=== PATIENT | female | born 1965 | race Caucasian/White ===

== ENCOUNTER 2016-07-08 14:52 | Inpatient (IN) | payer MEDICAID ==
[~2016-07-08] VITALS: Ht 157.5 cm; Wt 65.0 kg
--- NOTE | 2016-07-08 16:15 | NUR ---
Nurses Admission Note 50 year old voluntary female admitted from [facility] with increasing depression,anxiety and suicidal ideations with plans to drown herself or OD on pills.Patient has had a loss of a son 2 years ago and never grieved his because "I had to be strong for my family." Patient reported being depressed for over 20 years,has been getting increasingly worse with anxiety resulting in fear to leave the house,drive or function at home. She has had trials of SSRI antidepressants in the past stating they have not been effective. Patient has never been hospitalized for mental/emotional problems. She has a UTI and Macrobid was ordered from the ER at [facility]. Patient stated she has not been sleeping well with frequent wakefulness. She hesitated but contracted for safety. Patient was oriented to the unit,staff and procedures,will be monitored q 15min. checks for safety and support.
[2016-07-08] MEDS ORDERED: Benzocaine-Menthol Lozenge 2/Pkg PO PRN (18:20)
[2016-07-08] MEDS ORDERED: Alum-Mag Hydrox-Simeth 30 mL Suspension PO PRN (18:20)
[2016-07-08] MEDS ORDERED: Magnesium Hydroxide 10 mL Oral Concentration PO PRN (18:20)
[2016-07-08] MEDS: LORazepam 1 mg Tablet PO PRN ×2 (18:27→22:16)
--- NOTE | 2016-07-08 19:22 | NUR ---
Obs Dayshift Pt was admitted to the unit, co-operative, polite, quiet, reserved, sad. Head down, little eye contact, tearful. Pt is polite, scared. Pt has appropriate questions, concerns. Spent most of the evening in her room, in bed reading. Good ADL's, Ok meals
[2016-07-08] MEDS: Nitrofurantoin Monohyd-Macrocryst 100 mg Capsule PO SCH (20:37)
--- NOTE | 2016-07-08 22:38 | NUR ---
Nurses PRN Patient requested and received Ativan 2mg at 2215 for anxiety,night assistant to assess response. Patient earlier received Ambien 5mg and Vistaril 50mg at 2036 for sleep and anxiety without effect. Will maintain q 15min. checks for safety and support.
--- NOTE | 2016-07-09 06:32 | NUR ---
Sleep Adequate sleep through the night with no noted distress or awakening per protocol checks. Total sleep over 7 hours.
[2016-07-09] MEDS: Nitrofurantoin Monohyd-Macrocryst 100 mg Capsule PO SCH ×2 (09:29→20:28)
[2016-07-09] MEDS: LORazepam 1 mg Tablet PO PRN ×2 (09:59→19:40)
[2016-07-09] MEDS: buPROPion XL 150 mg ER24 Tablet PO SCH (15:51)
--- NOTE | 2016-07-09 17:23 | NUR ---
Day Shift 7a-7p Pt isolating in room the whole shift, frequent tearfulness with reports of feeling worthless, a burden to her family and feeling as though she would be better off . Pt endorses SI with no plan or intent at this time. Pt reports moderate anxiety " I feel electricity going through my body like I am going to jump out of my skin". Pt given Ativan prn and hydroxyzine x2 with good relief. ( see MAR for times). Pt contracts for safety while in the hospital and agrees to come to staff if feeling unsafe. Pt denies pain, no medical issues reported or observed. Monitoring continued with q 15 minute checks
--- NOTE | 2016-07-09 18:38 | NUR ---
[facility] Day Shift Pt maintained behavioral control throughout the shift. Pt affect appears flat, sad. Pt spends most of the shift resting in her room. Pt appears tearful periodically throughout the shift. Pt encouraged to participate in unit activities throughout the shift, though pt has declined most group activities. Pt is appropriate with staff and peers when active on the unit, but is not social. Pt appears more active on the unit during visiting hours, visiting with family in the dining room. Pt did not attend community meeting in the AM. Pt attended all meals and ate approx 60-75% of all meals.
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
--- NOTE | 2016-07-09 19:46 | NUR ---
Client Integration Manager/Counselor: S: "Sometime I get messages that are meant for me from the television." O: Patient slept 7.5+ hours last night as per staff. She reports wanting to with a plan of jumping into an icy haddad or taking an overdose. She denies H/I. She denies auditory and visual hallucinations. Depression is 10/10 and anxiety is 10/10. When asked her mood, patient stated, "Horrific." A: Patient is cooperative, tearful, anxious, depressed, limited insight, poor judgment. P: Follow care plan, coordinate with out-patient providers.
--- NOTE | 2016-07-10 01:35 | NUR ---
Nursing Note [id number] Pt isolating to room most of jorgito shift. pt had family in for a visit in the jorgito and Pt was very tearful when they left. Offered Pt 2mg of ativan and Pt accepted. Pt stated I feel so sad and Im tired of feeling like this, Im such a burden to my family they would be better off without me'. Pt open to discussing feelings regrading the of her son two years ago. Encouraged Pt to seek out a grief support group for her and her family to attend after DC. Pt was compliant with meds and took PRN ambien to promote sleep. Sleep time noted at 2400 and pt currently asleep. Q15 min safety checks per protocol no distress noted. WCTM sleep, behavior and safety t
[2016-07-10] MEDS: buPROPion XL 150 mg ER24 Tablet PO SCH (08:31)
[2016-07-10] MEDS: Nitrofurantoin Monohyd-Macrocryst 100 mg Capsule PO SCH ×2 (08:31→20:40)
[2016-07-10] MEDS: LORazepam 1 mg Tablet PO PRN ×2 (08:42→12:53)
[2016-07-10 10:15] VITALS: BP 117/73; PULSE 88; RESP 16
--- NOTE | 2016-07-10 18:51 | NUR ---
Nursing Note from [facility]elf[facility] Nursing Notes [id number] S: I could just take a sheet over the door and end it all O: Pt spent a lot of time isolated in her room. Pt then had a sitter for the remainder of the day. She was put into a double room in 3030-07, and shared manager respiratory care, pt was educated that she cant be left in the room alone. A: Pt appears to be tearful most of the day. P: Monitor for safety and response to treatment. Follow plan of care. for safety/response to treatment.
--- NOTE | 2016-07-10 21:10 | NUR ---
Observations 0900 to 2130 Pt affect and mood was sad, sullen and isolative. Pt rested in bed a good portion of the day and watched some TV. Pt speech and eye contact was poor. Pt declined to attend community meeting and did not set a daily goal. Pt attended group and did some coloring in D.R. and in the group. Pt attended meals in D.[facility]. and ate approximately 50-75% of meals. Pt was offered snack but she refused. Pt maintained behavior throughout the shift. Pt read her book. Pt appeared to be very emotional in the morning but looked a little better as the day went on. Pt was observed every 15 minutes throughout the shift as ordered.
--- NOTE | 2016-07-10 22:06 | NUR ---
Nurses PRN Patient requested Ambien 5mg for sleep,oven technician to assess response.
--- NOTE | 2016-07-10 23:13 | PCM.PNPSY ---
Subjective Date of Service Jul 10, 2016 Subjective Patient reports that she is "not having a good day...I'm a burden and they would be better off without me." Patient reports having ongoing suicidal ideation with plan to hang self. She was placed on a 1:1 for safety with a roommate. When told she is with a roommate for safety and to reduce social isolation, she states, "I'm not suicidal now, can I go back to my room." Later in the day, patient less distraught and feeling somewhat safer but reporting ongoing anxiety. Sleep: 6 hours, Ambien x 2 Appetite: okay Suicidal ideation: plans to use a sheet Homicidal ideation: denies Auditory hallucinations: denies Visual hallucinations: denies Other Psychotic Symptoms: N/A Anxiety: 15/03 Depression: 03/10 Current Medications Current Medications Bupropion HCl 150 mg DAILY PO Last administered on 07/10/16 08:31; Admin Dose 150 MG; Start 07/09/16 at 14:20 Clonazepam 1 mg TID PO Last administered on 07/10/16 20:40; Admin Dose 1 MG; Start 07/10/16 at 14:50 [place] Carbonate 300 mg BID PO Last administered on 07/10/16 08:31; Admin Dose 300 MG; Start 07/09/16 at 14:20; Stop 07/10/16 at 14:51; Status DC [place] Carbonate 600 mg HS PO Last administered on 07/10/16 20:41; Admin Dose 600 MG; Start 07/10/16 at 21:00 Nicotine 1 patch DAILY TOPICAL Last administered on 07/08/16 18:27; Admin Dose 1 PATCH; Start 07/09/16 at 08:30; Stop 07/09/16 at 10:15; Status DC Nicotine 1 patch DAILY TOPICAL Last administered on 07/10/16 08:31; Admin Dose 1 PATCH; Start 07/09/16 at 10:10 Mental Status Exam Appearance: Neat/well groomed Attitude: Cooperative, Guarded Behavior: Overtly anxious, Tearful Affect: Labile Mood: Depressed, Anxious Thought Process/Associations: Logical/Sequential, Goal Directed Speech Production: Paucity Speech Rate: Lags/Latency Speech Articulation: Normal Thought Content: Perseveration Danger to Self/Suicidal Ideati: Active, Plan (hang self with sheet), Intent ( unsure whether can remain safe) Danger to Others: None Delusions: Paranoid (Denies) Hallucinations: Auditory (Denies), Visual (Denies) Consciousness: Alert Orientation: Person, Place, Date, Situation Estimate Intellectual Function: Average Basis for IQ estimate: Awareness current events (Pres.'s Trump, distance across the [place] 2500 miles.), Word use/vocabulary, Educational history, Employment history Attention/Concentration & Cogn: Grossly Intact Cognitive Testing Method: Abstract Reasoning during interview, Spelling forward & backward Insight: Good Judgement: Limited Mental Health Plan The patient is a 50-year-old female with a long history of depression with minimal response to antidepressant therapy. There is a family history of bipolar disorder with successful treatment with lithium. Given the patient's pronounced suicidal ideation and previous poor response to medications, starting Wellbutrin which she is not certain of the response and augmenting with lithium will hopefully reduce her suicidality and depression. The patient was given informed consent regarding lithium treatment as augmentation therapy including risk of cardiac, thyroid, renal disease. The patient agreed to treatment. The patient reports no side effects from medication and would like to increase lithium to an expected therapeutic dose. Patient also reporting minimal benefit to lorazepam, and was agreeable to trial of scheduled clonazepam. Patient placed on 1:1 due to suicide risk. [place] AXIS I: Major depression recurrent, without psychotic features. Panic disorder versus generalized anxiety disorder AXIS II: Deferred though appears to have strong cluster B traits AXIS III: See past medical history AXIS IV: Moderate AXIS V: GAF 30 Medications Medications to address General Physical Health Nitrofurantoin 100 mg by mouth twice a day Treatments 1. The patient is admitted to the inpatient unit and will be provided a safe and secure environment. 2. The patient is placed on 1:1 due to reported suicidal ideation without the ability to agree to safety. 3. The patient is encouraged to participate with group and milieu activities. 4. The patient will be seen by the treatment team on a daily basis to assess symptoms, side effects and response to treatment. 5. The patient will be continued bupropion XL 150 mg daily and increase to 300 mg daily as tolerated. 6. Eskalith will be increased to 300mg daily and 600mg nightly and eventually combined at bedtime. 7. Clonazepam 1mg tid with 1mg bid prn 8. Zolpidem 5 mg by mouth nightly when necessary insomnia may repeat 1 and one hour if no sleep. 9. Anticipated length of stay 7-10 days. Sage Harmon MD Jul 10, 2016 23:13
--- NOTE | 2016-07-11 05:46 | NUR ---
Nursing Noc Pt appeared comfortable and relaxed watching TV throughout the evening. requested and received sleep aid x two and anti-anxiety med. Pt had broken sleep and tearful at times. Continuing to monitor mood, behavior, sleep times,medication effectiveness and emotional state. CP
--- NOTE | 2016-07-11 06:02 | NUR ---
Observations from [id number] Pts affect was flat sullen and isolative. Pt was watching TV in the common room when I arrived because the other pt in 231 was visiting with her and getting ready for bed and pt was upset about having to switch rooms to be more closely monitored "it's just annoying." Pt was asleep from [id number] and 0400-present. Pt has been monitored every 15 minutes as directed.
[2016-07-11] MEDS: buPROPion XL 150 mg ER24 Tablet PO SCH (08:01)
[2016-07-11] MEDS: Nitrofurantoin Monohyd-Macrocryst 100 mg Capsule PO SCH ×2 (08:02→20:08)
[2016-07-11 08:10] VITALS: BP 131/79; PULSE 65; RESP 16
--- NOTE | 2016-07-11 13:55 | NUR ---
Nursing Day S: I dont want to be around that scary kid, I get very scared when he yells O: pt is less tearful today, she becomes very frightened with other patients have verbal outbursts. A: Pt participated in group and she was interacting with other patients today. P: Monitor for safety and response to treatment. Follow plan of care. for safety/response to treatment.
--- NOTE | 2016-07-11 19:57 | PCM.PNPSY ---
Subjective Date of Service Jul 11, 2016 Subjective The patient reports being scared by one of the other patients as she was making noise. She felt somewhat self-conscious as other patients did not seem to be scared by him. The patient reports having bad dreams about her son who was killed and waking with the start. She also reports a sensation of "electricity " in her "whole body." We discussed akathisia and treatment with propranolol versus trauma related nightmares and treatment with prazosin and the patient preferred the latter. The patient is still having difficulty leaving her room and although she is endorsing suicidal ideation she denies any plan or intent to act on it. She reports her anxiety is improved and she appears overall less anxious. She is reporting no side effects. Sleep: 7.75 hours, "waking up every couple of hours" Appetite: okay Suicidal ideation: Denies plan Homicidal ideation: denies Auditory hallucinations: denies Visual hallucinations: denies Other Psychotic Symptoms: N/A Anxiety: 03/10 today, yesterday 15/03 Depression: Still 03/10 Current Medications Current Medications Clonazepam 1 mg BID PRN PO Last administered on 07/11/16 12:18; Admin Dose 1 MG; Start 07/10/16 at 14:50 Clonazepam 1 mg TID PO Last administered on 07/11/16 14:37; Admin Dose 1 MG; Start 07/10/16 at 14:50 [place] Carbonate 300 mg DAILY ONCE PO Last administered on 07/11/16 08:02; Admin Dose 300 MG; Start 07/11/16 at 08:30; Stop 07/11/16 at 08:31; Status DC [place] Carbonate 600 mg HS PO Last administered on 07/10/16 20:41; Admin Dose 600 MG; Start 07/10/16 at 21:00; Stop 07/11/16 at 21:01 Mental Status Exam Appearance: Neat/well groomed Attitude: Cooperative, Guarded Behavior: Overtly anxious Affect: Restricted Mood: Depressed, Anxious Thought Process/Associations: Logical/Sequential, Goal Directed Speech Production: Paucity Speech Rate: Lags/Latency Speech Articulation: Normal Thought Content: Perseveration Danger to Self/Suicidal Ideati: Active, Plan (denies), Intent (denies) Danger to Others: None Hallucinations: Auditory (Denies), Visual (Denies) Consciousness: Alert Orientation: Person, Place, Date, Situation Estimate Intellectual Function: Average Basis for IQ estimate: Awareness current events (Pres.'s Trump, distance across the [place] 2500 miles.), Word use/vocabulary, Educational history, Employment history Attention/Concentration & Cogn: Grossly Intact Cognitive Testing Method: Abstract Reasoning during interview, Spelling forward & backward Insight: Good Judgement: Limited Mental Health Plan The patient is a 50-year-old female with a long history of depression with minimal response to antidepressant therapy. There is a family history of bipolar disorder with successful treatment with lithium. Given the patient's pronounced suicidal ideation and previous poor response to medications, starting Wellbutrin which she is not certain of the response and augmenting with lithium will hopefully reduce her suicidality and depression. The patient was given informed consent regarding lithium treatment as augmentation therapy including risk of cardiac, thyroid, renal disease. The patient agreed to treatment. The patient reports minimal response to Klonopin, but reports decrease in overall anxiety. The patient also is not tearful today and is able to acknowledge that she does not feel as anxious. The patient remains on one-to- one due to ongoing suicidal ideation. Should the patient not have any further plan or behaviors over the evening one-to-one could likely be discontinued in the morning. The patient may benefit from a larger dose of zolpidem at bedtime and the use of prazosin for nightmares. [place] AXIS I: Major depression recurrent, without psychotic features. Panic disorder versus generalized anxiety disorder AXIS II: Deferred though appears to have strong cluster B traits AXIS III: See past medical history AXIS IV: Moderate AXIS V: GAF 30 Medications Medications to address General Physical Health Nitrofurantoin 100 mg by mouth twice a day Treatments 1. The patient is admitted to the inpatient unit and will be provided a safe and secure environment. 2. The patient is denying current active suicidality and is not in need of a one-to-one at this time. She is agreeing to notify us should he have any acute suicidal or homicidal thoughts. 3. The patient is encouraged to participate with group and milieu activities. 4. The patient will be seen by the treatment team on a daily basis to assess symptoms, side effects and response to treatment. 5. The patient will be bupropion XL 150 mg daily and increase to 300 mg daily as tolerated. 6. Eskalith 900 mg at bedtime. 7. Clonazepam 1 mg 3 times a day and 1 mg twice a day as needed. 8. Prazosin 1 mg nightly. 9. Zolpidem 10 mg at bedtime as needed. 10. Anticipated length of stay 7-10 days. Sage Harmon MD Jul 11, 2016 19:57
--- NOTE | 2016-07-11 20:31 | NUR ---
Observations 0700 to 2130 Pt affect and mood was a little better today, not as sullen and a little less emotional. Pt rested in bed, read her book, watched some TV and socialized with peers. Pt speech and eye contact was ok. Pt attended community meeting and set a daily goal. Pt attended groups, did some coloring in D.R. and in the group she painted a box. Pt played some Wii with peers. Pt attended meals in [employer] and ate approximately 75% of meals. Pt was offered snack but she refused. Pt maintained behavior throughout the shift. Pt had a visitor and it appeared to go well. Pt took a shower before bed. Pt was observed every 15 minutes throughout the shift as ordered.
--- NOTE | 2016-07-12 06:08 | NUR ---
Nursing Note Noc Pt c/t have c/o insomnia and broken sleep stating she can only sleep for 15 min and wakes up in a state of panic Pt given PRN ambien and klonopin to help encourage sleep. Pt had one crying episode at 0130 stating "I am tired of feeling this way, I just want to be normal and stating she doesn't want to live like this anymore. Pt denied having a plan to hurt herself. Pt noted asleep 0215 .Q15 min safety checks per protocol no distress noted [facility] sleep, behavior, safety
[2016-07-12] MEDS: buPROPion XL 150 mg ER24 Tablet PO SCH (08:11)
[2016-07-12] MEDS: Nitrofurantoin Monohyd-Macrocryst 100 mg Capsule PO SCH ×2 (08:11→21:02)
[2016-07-12 09:00] VITALS: BP 104/59; PULSE 55; RESP 16
--- NOTE | 2016-07-12 13:55 | NUR ---
[id number]. nurs. S: "I can't go on feeling like this, I wake up and remember, (son's ) can't stop crying, nothing helps..I have been on anti depressants for years nothing helped, I don't know why my stays with me...I can't go out of the house.. if I could get rid of the panic at least...I have been looking after everyone else.. my says "I should just stop thinking about it..everyone means well just say the wrong things and trying to make decisions about how to care for me without asking what I want.... " O: Pt crying on bed stating that she felt better yesterday and asking about medication, pt stating she was not distressed by the departure of her younger son to , but by the grieving depressed ,anxious and social phobic pattern that she seemed unable to emerge from currently, and while tearful, pt able to discuss many possible strategies that she could undertake to improve well being, and start to address pxs of social anxiety and grief. Pt given vistaril 50mg at approx lunchtime and appeared asleep after lunch. Pt states that she does not need to "be watched" as she can reliably maintain no self harm contract on unit . Pt also reporting close relationships with family and friends with a number of plans to manage the time that her spouse will be in [place] for 6mths. Addendum: 07/12/16 at 1951 by NORA VELAZQUEZ RN Pt given vistaril 50mg twice over day stating that it seemed to help decrease her anxiety and "fear of people" more than she noted with the sheduled hasmukh. Pt vbisited by family and providing some caring attention to young male peer with altered mentation.
--- NOTE | 2016-07-12 15:16 | NUR ---
Fleet Service Manager/Counselor: S: "I'm having a bad day." O: Patient only slept 5+ hours last night as per staff. She reports being "tired" but feels safe in the hospital and contracts for safety. She denies H/I. She denies auditory and visual hallucinations. Depression is 8-9/10 and anxiety is 8-9/10. When asked her mood, patient stated, "I feel afraid. I want to get better, but it's hard. I can't live like this." A: Patient is cooperative, tearful, anxious, depressed, hopeless, helpless, limited insight, poor judgment. P: Follow care plan, coordinate with out-patient providers.
--- NOTE | 2016-07-12 21:40 | NUR ---
OBSERVATIONS 0900 to 2130 Pt was pleasant and cooperative with staff, appropriate and social with peers. Pt was tearful in the morning stating that she was incredibly sad and couldn't control it and that she couldn't live like that. Pt improved as the day progressed. Pt enjoyed visit with and two daughters but at times appeared distant. Pt was pleased that she spoke with another pt in particular that she was fearful of previously. Maintained Q15 safety checks as directed.
--- NOTE | 2016-07-12 22:48 | PCM.PNPSY ---
Subjective Date of Service Jul 12, 2016 Subjective The patient reports that "I had a bad day and a bad night" and reports still feeling worthless. She denies any intent or plan of harming herself. She would like to get better but is having difficulty remaining optimistic. Discussed not overexaggerating symptoms or catastrophizing such as saying anxiety is 15/10. She is reporting no side effects. Sleep: 5 hours, "not great" Appetite: "alright" Suicidal ideation: Denies plan Homicidal ideation: denies Auditory hallucinations: denies Visual hallucinations: denies Other Psychotic Symptoms: N/A Anxiety: 8-02/08, yesterday 03/10 Depression: or 02/08, yesterday 03/10 Current Medications Current Medications [place] Carbonate 300 mg DAILY ONCE PO Last administered on 07/11/16 08:02; Admin Dose 300 MG; Start 07/11/16 at 08:30; Stop 07/11/16 at 08:31; Status DC B[place] Carbonate 900 mg HS PO Last administered on 07/12/16 21:03; Admin Dose 900 MG; Start 07/12/16 at 21:00 Prazosin HCl 1 mg HS PO Last administered on 07/11/16 20:08; Admin Dose 1 MG; Start 07/11/16 at 21:00; Stop 07/12/16 at 11:19; Status DC Prazosin HCl 2 mg HS PO Last administered on 07/12/16 21:02; Admin Dose 2 MG; Start 07/12/16 at 21:00 Temazepam 30 mg DAILY@22 PRN PO Last administered on 07/12/16 22:16; Admin Dose 30 MG; Start 07/12/16 at 22:00 Zolpidem Tartrate 10 mg HS PRN PO Last administered on 07/11/16 20:28; Admin Dose 10 MG; Start 07/11/16 at 20:15; Stop 07/12/16 at 11:19; Status DC Mental Status Exam Appearance: Neat/well groomed Attitude: Cooperative, Guarded Behavior: Overtly anxious Affect: Restricted Mood: Depressed, Anxious Thought Process/Associations: Logical/Sequential, Goal Directed Speech Production: Paucity Speech Rate: Lags/Latency Speech Articulation: Normal Thought Content: Perseveration Danger to Self/Suicidal Ideati: Active, Plan (denies), Intent (denies) Danger to Others: None Hallucinations: Auditory (Denies), Visual (Denies) Consciousness: Alert Orientation: Person, Place, Date, Situation Estimate Intellectual Function: Average Basis for IQ estimate: Awareness current events (Pres.'s Trump, distance across the [place] 2500 miles.), Word use/vocabulary, Educational history, Employment history Attention/Concentration & Cogn: Grossly Intact Cognitive Testing Method: Abstract Reasoning during interview, Spelling forward & backward Insight: Good Judgement: Limited Mental Health Plan The patient is a 50-year-old female with a long history of depression with minimal response to antidepressant therapy. There is a family history of bipolar disorder with successful treatment with lithium. Given the patient's pronounced suicidal ideation and previous poor response to medications, starting Wellbutrin which she is not certain of the response and augmenting with lithium will hopefully reduce her suicidality and depression. The patient was given informed consent regarding lithium treatment as augmentation therapy including risk of cardiac, thyroid, renal disease. The patient agreed to treatment. The patient reports overall improved symptoms today with decreased anxiety and depression. Endorses SI related to "feeling worthless" but denies plan or intent and agrees to notify staff if symptoms worsen. Discussed switching Ambien to Restoril and increasing Wellbutrin and prazosin, patient agreeable. [place] AXIS I: Major depression recurrent, without psychotic features. Panic disorder versus generalized anxiety disorder AXIS II: Deferred though appears to have strong cluster B traits AXIS III: See past medical history AXIS IV: Moderate AXIS V: GAF 30 Medications Medications to address General Physical Health Nitrofurantoin 100 mg by mouth twice a day Treatments 1. The patient is admitted to the inpatient unit and will be provided a safe and secure environment. 2. The patient is denying current active suicidality and is not in need of a one-to-one at this time. She is agreeing to notify us should he have any acute suicidal or homicidal thoughts. 3. The patient is encouraged to participate with group and milieu activities. 4. The patient will be seen by the treatment team on a daily basis to assess symptoms, side effects and response to treatment. 5. The patient will be bupropion XL 150 mg daily and increase to 300 mg daily . 6. Eskalith 900 mg at bedtime. 7. Clonazepam 1 mg 3 times a day and 1 mg twice a day as needed. 8. Increase Prazosin to 2 mg nightly. 9. DC Zolpidem and start Restoril 30 mg at bedtime as needed. 10. Anticipated length of stay 7-10 days. Sage Harmon MD Jul 12, 2016 22:48
--- NOTE | 2016-07-13 06:20 | NUR ---
Nursing Noc Pt out in DR for snacks and wrap up group. Pt later noted to isolate to room with lights on. Pt reports she doesn't want to go to sleep because she awakes thinking of her son. "I can't go on this way", Pt appears to want to discuss her feelings alot and enjoys having people to talk to. Pt presented tearful while explaining, then when observed minutes later without patient being aware, patient is presenting relaxed without distress picking at her toes in a relaxed manor.
[2016-07-13] MEDS: buPROPion XL 300 mg ER24 Tablet PO SCH (08:36)
[2016-07-13] MEDS: Nitrofurantoin Monohyd-Macrocryst 100 mg Capsule PO SCH ×2 (08:36→21:09)
--- NOTE | 2016-07-13 18:02 | NUR ---
Obs Dayshift Pt was in bed for the morning, stating that she wasn't going to eat today and didn't want to do anything. Pt was frustrated, irritable, sad, depressed. Pt was pushed to attend Comm Meeting, pt did not want to go and needed pushing to participate as well. Pt appeared displeased at having to be out of her room, and with peers in the milieu. Pt appeared distant, looking past people, poor eye contact. Pt arrived for a visit, she became engaged w/ him, and peers. participated in grp activities, ate dinner, smiling more. Pt mood was 1/10 and goal for the day was to try and stay safe. Good ADL's, Good meals
--- NOTE | 2016-07-13 18:28 | NUR ---
[id number]. nurs. S/O: Pt stating did not want to get up for breakfast staying in bed, sad depressed irritable frustrated met with and did revise her level of anxiety from 15/03 to 01/08. Pt received vistaril at 1222 and klonapin o.5mg at 1450 stating "It helps me know when my next dose will be", pt with brighter affect in afternoon, and stated that she was using note book to plan activities to undertake to decrease her depression, anxiety, and social withdrawal. Pt noted to be actively engaged with new female pt and spouse during his visit this jorgito. Pt stating "I will be sad when he goes, he leaves for [place] tomorrow" Pt asking for vistaril at 1840 and given 50mg, pt stating that she prefers this med as it takes away her anxiety more than klonapin appears to and it takes away the electrical feeling that comes in her arms whenever she start thinking about of her son. Pt stating that she does not want to make a decision about plans of where to stay with family so that she is not alone when goes home before she joins her spouse but has several options already available.
--- NOTE | 2016-07-13 21:37 | PCM.PNPSY ---
Subjective Date of Service Jul 13, 2016 Subjective The patient reports that she is "worse than yesterday". The patient is seen later with her who reports that she is "1 million times better" than when she was admitted. The patient disputes this then states perhaps she is better. Although her depression scores were unchanged from yesterday, her anxiety is reduced. She is also reporting decreased tearfulness. She reports that hydroxyzine was more effective than clonazepam and requests this is the scheduled medication. We discussed reducing clonazepam and then discontinuing if hydroxyzine successful. The patient was agreeable. Although reporting that she feels worthless and a burden, she denies any intent or plan of harming herself. She would like to get better but is having difficulty remaining optimistic. Discussed not overexaggerating symptoms or catastrophizing such as saying anxiety is 15/10. She is reporting no side effects. Sleep: 4-6 hours, "I still woke up with a panic. When will this ever get better ?!" Appetite: "Okay I guess" Suicidal ideation: Denies plan or intent Homicidal ideation: denies Auditory hallucinations: denies Visual hallucinations: denies Other Psychotic Symptoms: N/A Anxiety: -01/08, yesterday -02/08 Depression: -02/08 , yesterday or 02/08 Current Medications Current Medications Bupropion HCl 300 mg DAILY PO Last administered on 07/13/16 08:36; Admin Dose 300 MG; Start 07/13/16 at 08:30 Clonazepam 0.5 mg TID PO Last administered on 07/13/16 21:10; Admin Dose 0.5 MG ; Start 07/13/16 at 14:30 Hydroxyzine Pamoate 50 mg TID PO Last administered on 07/13/16 18:40; Admin Dose 50 MG; Start 07/13/16 at 14:30 [place] Carbonate 900 mg HS PO Last administered on 07/13/16 21:09; Admin Dose 900 MG; Start 07/12/16 at 21:00 Prazosin HCl 2 mg HS PO Last administered on 07/13/16 21:10; Admin Dose 2 MG; Start 07/12/16 at 21:00 Temazepam 30 mg DAILY@22 PRN PO Last administered on 07/12/16 22:16; Admin Dose 30 MG; Start 07/12/16 at 22:00 Mental Status Exam Appearance: Neat/well groomed Attitude: Cooperative, Guarded Behavior: Overtly anxious Affect: Restricted Mood: Depressed, Anxious Thought Process/Associations: Logical/Sequential, Goal Directed Speech Production: Paucity Speech Rate: Lags/Latency Speech Articulation: Normal Thought Content: Perseveration Danger to Self/Suicidal Ideati: Active, Plan (denies), Intent (denies) Danger to Others: None Hallucinations: Auditory (Denies), Visual (Denies) Consciousness: Alert Orientation: Person, Place, Date, Situation Estimate Intellectual Function: Average Basis for IQ estimate: Awareness current events (Pres.'s Trump, distance across the [place] 2500 miles.), Word use/vocabulary, Educational history, Employment history Attention/Concentration & Cogn: Grossly Intact Cognitive Testing Method: Abstract Reasoning during interview, Spelling forward & backward Insight: Good Judgement: Limited Mental Health Plan The patient is a 50-year-old female with a long history of depression with minimal response to antidepressant therapy. There is a family history of bipolar disorder with successful treatment with lithium. Given the patient's pronounced suicidal ideation and previous poor response to medications, starting Wellbutrin which she is not certain of the response and augmenting with lithium will hopefully reduce her suicidality and depression. The patient was given informed consent regarding lithium treatment as augmentation therapy including risk of cardiac, thyroid, renal disease. The patient agreed to treatment. The patient reports overall improved symptoms today with decreased anxiety but is still catastrophize and. Endorses SI related to "feeling worthless" but denies plan or intent and agrees to notify staff if symptoms worsen. The patient reported no particular improvement with Restoril or prazosin increase. [place] AXIS I: Major depression recurrent, without psychotic features. Panic disorder versus generalized anxiety disorder AXIS II: Deferred though appears to have strong cluster B traits AXIS III: See past medical history AXIS IV: Moderate AXIS V: GAF 30 Medications Medications to address General Physical Health Nitrofurantoin 100 mg by mouth twice a day Medications to address Mental Health Prazosin 2 mg nightly Clonazepam 1 mg 3 times a day [place] carbonate 900 mg at bedtime Bupropion XL 300 mg by mouth daily Hydroxyzine 50 mg every 4 hours when necessary Temazepam 30 mg at 2200 hrs. when necessary insomnia Treatments 1. The patient is admitted to the inpatient unit and will be provided a safe and secure environment. 2. The patient is denying current active suicidality and is not in need of a one-to-one at this time. She is agreeing to notify us should he have any acute suicidal or homicidal thoughts. 3. The patient is encouraged to participate with group and milieu activities. 4. The patient will be seen by the treatment team on a daily basis to assess symptoms, side effects and response to treatment. 5. Continue bupropion XL 300 mg daily . 6. Eskalith 900 mg at bedtime. Check lithium level on 07/15/2016. 7. Decrease clonazepam to 0.5 mg 3 times a day and discontinue clonazepam as needed. 8. Increase Prazosin to 3 mg nightly. Blood pressure 122/70 9. Restoril 30 mg at bedtime as needed. 10. Anticipated length of stay 7-10 days. Sage Harmon MD Jul 13, 2016 21:37
--- NOTE | 2016-07-14 03:53 | NUR ---
Nursing Noc Pt had a pleasant visit with her this evening. She spent time with her peers and was noted to be smiling and enjoying a movie. She attended and participated in evening group. She fell asleep briefly in the later evening and after awakening told this staff member that she woke up not feeling fearful. She reports this has been the first time in a while that she has not been fearful upon awakening. She reports her concentration is poor and so has not been able to read the newest [employer] book which she has at her bedside. She took her scheduled HS medications without difficulty. She requested and received Restoril 30mg po prn for sleep & Vistaril 50mg po prn for anxiety both given @ 2155. Medication mildly effective. She was able to sleep from [id number] at which time she awoke and c/o felt anxiety and difficulty falling back to sleep. She requested and received Vistaril 50mg po prn @ 0205 with apparent effect. Pt has remained calm and able to return to sleep by 0230. Addendum: 07/14/16 at 0626 by CLEO COPE RN Total sleep over 7 hours.
[2016-07-14] MEDS: Nitrofurantoin Monohyd-Macrocryst 100 mg Capsule PO SCH ×2 (07:54→20:36)
[2016-07-14] MEDS: buPROPion XL 300 mg ER24 Tablet PO SCH (07:54)
[2016-07-14 10:25] VITALS: BP 109/71; PULSE 67; RESP 16
--- NOTE | 2016-07-14 18:19 | PROG NOTE ---
[address] [address] PROGRESS NOTE PATIENT: JAVI ONEILL : 1965 MR#: [id number] ADMIT: 07/08/2016 JOB ID: [id number] DATE: 07/14/2016 CHIEF COMPLAINT: "I am having a better day than yesterday." This per patient report. HISTORY OF PRESENT ILLNESS: As stated above, the patient met with myself and binder caser, Sherri Sinclair. She indicated that she is having a much better day today. She indicated that she woke up with no panic this morning. She indicates that she typically will have panic attacks scattered throughout the daytime hours and in the evening in particular. She indicates that she was able to actually fall asleep last night and stated that she wonders if the medicine is helping out. We did discuss at length her prior history and I have reviewed documentation completed by Dr. Harmon. She reports that this is her 1st hospitalization. She indicated that she would be willing to follow up with outpatient care. I did discuss a possible plan of discharge at the end of this week. She reports that she would like to discharge to the care of a friend in [place], [place], and she has agreed to sign releases to cooperate. OBJECTIVE: On mental status exam, she is quite anxious on approach. Hesitant to engage. She made intermittent eye contact. She was tearful at times. Her speech was of normal tone, frequency, and volume. Her mood was anxious. Her affect was guarded. Her thought process shows no evidence of racing thoughts, flight of ideas, loose or disconnected thinking. Thought content: She denied any evidence of current suicidal ideation, intent, or plan, however, indicated that she was struggling yesterday. She denied any evidence of homicidal ideation. There was no evidence of paranoia, hallucinations, or delusions. She was alert, oriented to time and place. Her attention and concentration are intact. Her memory intact in the short term, longterm, recent. Insight and judgment are fair. PHYSICAL EXAM: Vital signs, current: Temperature is 36.5, pulse 67, respirations 16, BP 109/71. MEDICATION REVIEW: Includes: 1. Prazosin 3 mg q.h.s. 2. Klonopin 0.5 mg t.i.d. 3. Vistaril 50 mg t.i.d. 4. Wellbutrin 300 mg q.a.m. 5. Restoril 30 mg q.h.s. 6. [place] 900 mg q.h.s. 7. Macrobid b.i.d. which will be discontinued as of tomorrow. ASSESSMENT: [place] I. 1. Major depressive disorder, recurrent, without psychotic features. 2. Panic disorder versus generalized anxiety disorder. [place] II. Cluster B personality traits. [place] III. Deferred. [place] IV. Moderate. [place] V. Global Assessment of Functioning current 30. PLAN: 1. Recommendations to continue with all medications noted. 2. Recommendations for probable plan of discharge on Thursday with continuation of outpatient access of care. 3. Recommendations for releases to be signed for the best friend in [place], [place], to cooperate with transfer and flight arrangement.
--- NOTE | 2016-07-14 19:51 | NUR ---
Nursing: Day shift: S: I am better than I was the first two days. But I wouldn't be safe if I was at home. But I will be safe here. O: Pt looks brighter and felt better the first of the shift. During the shift, she became more depressed. Looked brighter when visited by her daughters this evening. No requests for PRN meds. P: Continue to assess for effectiveness of current medications.
[2016-07-14] MEDS: PRAZOSIN PO SCH ×2 (21:50)
--- NOTE | 2016-07-15 06:28 | NUR ---
Nursing Noc Pt had a good visit with her family. She remains pleasant, social and cooperative on the unit. She experienced anxiety prior to bed. She requested and received Vistaril 50mg po prn with good effect. Pt able to fall asleep with no further distress noted. Total sleep over 7.5 hours.
[2016-07-15] MEDS: buPROPion XL 300 mg ER24 Tablet PO SCH (07:50)
[2016-07-15] MEDS: Nitrofurantoin Monohyd-Macrocryst 100 mg Capsule PO SCH ×2 (07:50→21:09)
[2016-07-15 09:46] LABS: BASOPHILS % (AUTO) 0.6 % (0-3); EOSINOPHILS % (AUTO) 5.5 % (0-5); MONOCYTES % (AUTO) 8.8 % (4-12); Mean Corpuscular Hemoglobin 30.7 pg (27.0-35.0); Mean Corpuscular Volume 92.4 fL (81-100); NEUTROPHILS % (AUTO) 67.6 % (40-74); Platelet Count 177 bil/L (150-400)
--- NOTE | 2016-07-15 15:41 | PROG NOTE ---
[address] [address] PROGRESS NOTE PATIENT: JAVI ONEILL : 1965 MR#: [id number] ADMIT: 07/08/2016 JOB ID: [id number] DATE: 07/15/2016 CHIEF COMPLAINT: "I am feeling better, I think the medication has really helped. My friend will be here on Thursday and I'm going to go back to [place] with her." HISTORY OF PRESENT ILLNESS: As stated above, the patient did identify that she is feeling a significant improvement with her mood status. She identified last evening that she did have some tossing and turning but was able to take some Vistaril and had a positive response to the medication. LABORATORY DATA: Has been collected including a lithium level, which was noted at 1.3. Her CBC and metabolic panel were all within normal limits. OBJECTIVE: On mental status examination, she was cooperative, polite. She maintained intermittent eye contact. Her speech was of normal tone, frequency and volume. Her mood was neutral. Her affect was congruent. Her thought process showed no evidence of racing thoughts, flight of ideas, loose or disconnected thinking. Her thought content, she denied any evidence of current suicidal, homicidal ideation. No evidence of paranoia. No evidence of hallucinations or delusions. She was alert, oriented to time and place. Her attention and concentration were intact. 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 Insight and judgment are fair. PHYSICAL EXAMINATION: Vital signs are current. Temperature is 36.5, pulse 67, respirations 16, BP 109/71. MEDICATION REVIEW: Includes: 1. Wellbutrin 300 mg q. a.m. 2. Klonopin 0.5 mg t.i.d. 3. Vistaril 50 mg q.4 hours p.r.n. as well as 50 mg t.i.d. 4. [place] carbonate 900 mg ER q.h.s. 5. Macrobid 100 mg b.i.d. last dose administered today. 6. Prazosin 3 mg q.h.s. 7. Restoril 30 mg q.h.s. ASSESSMENT: AXIS I 1. Major depressive disorder, recurrent type. 2. Panic disorder without agoraphobia. 3. Mood disorder, not otherwise specified. AXIS II Borderline personality disorder. AXIS III None. AXIS IV Stressors are noted for disturbance of coping, disturbance of primary support system. AXIS V Global assessment of functioning current 40. PLANS: 1. Recommendations for continuation of discharge planning for Thursday. 2. Recommendations for continuation of all medications noted with consideration of taper and discontinuation of Klonopin with transition of Klonopin from scheduled doses at t.i.d. to p.r.n. The patient indicated that she prefers dose administration of Vistaril. 3. Last dose administration of Macrobid will be given at night for a noted previous history of urinary tract infection.
--- NOTE | 2016-07-15 18:13 | NUR ---
Nursing: Day shift: S: I'm not suicidal now. It just went away. I am thinking of what I want to do in the future. O: Delfina has been participating in groups today. Between groups and meals she has been in her room. Has somewhat sad facial expression but brightens when approached. She denied depression. Admitted to still having anxiety at 7/10. Received PRN klonopin 0.5mg and anxiety was reduced to 3/10 by 1809. Attributed increased anxiety at that time to out-of control behavior of peer. States to adjusto writer operator that she will go to [place] [facility] when discharged on Thursday. A: Improving. P: Support toward discharge. Still observe for safety as depression lifts.
--- NOTE | 2016-07-15 18:44 | NUR ---
Observations [id number] Pt was awake in room upon start of shift. She appears to be much more social then last week, spending time with peers and participating in group activities. She also spent more time watching TV and in the common areas. Pt expressed concern about another pt on the unit who was voicing SI. Pt attended all meals, eating an average of 75%. PT was observed every 15 minutes of shift as directed.
[2016-07-15 21:01] VITALS: BP 106/66; PULSE 68; RESP 16
[2016-07-15] MEDS: PRAZOSIN PO SCH ×2 (21:11)
--- NOTE | 2016-07-16 05:59 | NUR ---
nursing, nights, 11-7 s/o- has appeared to sleep after 2244 during q 15 minute assessments. a- no apparent distress. Interacting with gravely disabled and hypomanic patients giving advice and support. Possible discharge Thursday. p- monitor behavior/emotional state, quality, times and amount of sleep, use and effect of medication
[2016-07-16] MEDS: buPROPion XL 300 mg ER24 Tablet PO SCH (08:38)
[2016-07-16 11:23] VITALS: BP 87/59; PULSE 68; RESP 18
--- NOTE | 2016-07-16 11:27 | NUR ---
Nursing Day Shift- S- "I feel 100% better. I'm like a 9 or 10. (10 be good, without any depression.) I like the Vistaril. If the Klonopin is addicting I don't want it." O- Pt. appeared asleep at the start of the shift. She declined to get up for breakfast initially. She reported poor sleep, with multiple wakings, and trouble returning to sleep. Pt. did get up to participate in community mtg. A- Pt. reports that Vistaril is effective for anxiety. She reports decreased depression and poor sleep. P- Planned discharge for Thursday.
--- NOTE | 2016-07-16 13:46 | PROG NOTE ---
[address] [address] PROGRESS NOTE PATIENT: JAVI ONEILL : 1965 MR#: [id number] ADMIT: 07/08/2016 JOB ID: [id number] DATE: 07/16/2016 CHIEF COMPLAINT: "I am feeling a lot better, my friend is coming in on Thursday. What time do you think I can leave?" This is per patient report. HISTORY OF PRESENT ILLNESS: As stated above, the patient identified that she is feeling significantly better but she continues to struggle with sleep disturbance. She indicates it has been chronic in nature and she understands that this may continue. I have discussed the possibility of discontinuing her Klonopin based on her open identification of usage of Vistaril and direct benefit achieved. She indicated that she understands and that she is very agreeable. I have also discussed the possibility of tapering back on her Wellbutrin down to 150 mg daily due to a possibility of overt stimulation and over- activation. She indicates that she would like to see if she can get by on a lower dose based on her positive responses to lithium. OBJECTIVE: On mental status exam she was bright, cooperative, interactive. She indicated that she had very positive conversations last evening with her children and that she is optimistic about the future which has not been present for quite some time. She was seen coloring throughout the course of conversation. Her speech was of normal tone, frequency, and volume. Her mood was neutral. Her affect was congruent. Her thought process showed no evidence of racing thoughts, flight of ideas, loose or disconnected thinking. Her thought content, she denied any evidence of current suicidal, homicidal ideation. No evidence of active hallucinations, delusions. She was alert, oriented to person, place, time, situation. Her attention and concentration intact. Her memory intact in the short term, emt intermediate, recent. Insight and judgment were fair. PHYSICAL EXAMINATION: Vital signs of current, temperature is 36.2, pulse 68, respirations 18, BP 87/59. CURRENT MEDICATIONS: Include: 1. Prazosin 3 mg q.h.s. 2. Vistaril 50 mg t.i.d. with additional p.r.n. 3. Wellbutrin 300 mg XL q.a.m. 4. Restoril 30 mg q.h.s. 5. Eskalith 900 mg q.h.s. ASSESSMENT: AXIS I 1. Major depressive disorder, recurrent type. 2. Panic disorder without agoraphobia. 3. Mood disorder, not otherwise specified. AXIS II Borderline personality disorder. AXIS III None. AXIS IV Stressors were noted for disturbance of coping, disturbance of primary support system. AXIS V Global Assessment of Functioning current 40. PLAN: 1. Recommendation is for taper of Wellbutrin to 150 mg XL daily. 2. Recommendation is for discontinuation of Klonopin. 3. Recommendation is for continuation of therapeutic support. 4. Recommendation is for discharge on Thursday morning with aftercare coordination with case management.
--- NOTE | 2016-07-16 17:50 | NUR ---
[facility] Day Shift Pt maintained behavioral control throughout the shift. Pt affect appears brighter than noted on previous shifts. Pt spends most of the shift resting in her room and interacting lightly with staff and peers in the dining room. Pt is appropriate with staff and peers when active on the unit, and appears more social than noted on previous shifts. Pt attended community meeting in the AM and group activities throughout the shift. Pt attended all meals and ate approx 75% of all meals.
[2016-07-16] MEDS: PRAZOSIN PO SCH ×2 (20:44)
--- NOTE | 2016-07-16 22:26 | NUR ---
Nursing Evening shift 3pm to 11pm Pt with improved mood and affect., reported " the meds are working, I feel better than I ever have". Pt reported that helplessness, hopelessness and SI have subsided but continues to report what she believes is anxiety " Its like electricity is running through my body". Pt stated she has experienced these sensations since childhood and reported that vistaril helps to minimize it, however denies worry or ruminating. Pt social with peers, hygiene good, food and fluid intake adequate. Denies side effects of medication, no pain or medical issues reported. Pt looking forward to discharge
--- NOTE | 2016-07-17 05:22 | NUR ---
nursing, nights, 11-7 s/o- has appeared to sleep after 2214 during q 15 minute assessments. a- no apparent distress. p- monitor behavior/emotional state, quality, times and amount of sleep, use and effect of medication. robert
--- NOTE | 2016-07-17 06:50 | NUR ---
Observations 1900 to 0700 Pt affect and behavior were the same as in the previous night. Pt was polite and cooperative. Pt first appeared asleep at 00:30 and was observed every 15 minutes through the night as directed.
[2016-07-17] MEDS: buPROPion XL 150 mg ER24 Tablet PO SCH (08:13)
[2016-07-17 09:01] VITALS: BP 111/72; PULSE 71; RESP 15
--- NOTE | 2016-07-17 13:46 | PROG NOTE ---
[address] [address] PROGRESS NOTE PATIENT: JAVI ONEILL : 1965 MR#: [id number] ADMIT: 07/08/2016 JOB ID: [id number] DATE: 07/17/2016 CHIEF COMPLAINT: "I'm really excited to see my friend." This per patient report. HISTORY OF PRESENT ILLNESS: As stated above, the patient openly identified that her friend will be driving in to the community at 10:30 tomorrow morning to pick her up. She indicates that she is feeling very well. She indicated that she slept last evening for approximately 8 hours without any disturbance. She readily identifies that she is excited about the future and feels better than ever. MENTAL STATUS EXAMINATION: The patient is bright, cooperative, interactive. She maintains good eye contact throughout. Her speech is of normal tone, frequency and volume. Her mood was neutral. Her affect was congruent. Her thought process showed no evidence of racing thoughts or flight of ideas, loose or disconnected thinking. Thought content: She denied any evidence of current suicidal, homicidal ideation. She denies any active hallucinations, delusions. She was alert, oriented to time and place. Her attention and concentration intact. Her memory intact in the short term, senior living, recent. Insight and judgment are fair. PHYSICAL EXAM: All vital signs are current. Temperature is 36, pulse 71, respirations 15, BP 111/72. MEDICATION REVIEW: Includes: 1. Wellbutrin XL 150 mg q. a.m. 2. Prazosin 3 mg q.h.s. 3. Vistaril 50 mg t.i.d. 4. Restoril 30 mg q.h.s. 5. Eskalith 900 mg q.h.s. ASSESSMENT: AXIS I 1. Mood disorder, not otherwise specified. 2. Major depressive disorder, recurrent type. 3. Panic disorder without agoraphobia. AXIS II Borderline personality disorder. AXIS III None. AXIS IV Stressors are noted for disturbance of coping, disturbance of primary support system. AXIS V Global assessment of functioning current 40. PLANS: 1. Recommendations for continuation of all medications. 2. Discharge tomorrow morning for continuation of outpatient care. Outpatient followups are scheduled with [facility] for [facility] on [place] of next week at 8 a.m.
--- NOTE | 2016-07-17 13:47 | NUR ---
Nursing Day Shift- S/O- Pt. was awake in her room at the start of the day shift. She was on the telephone and appeared to be making notes. She expressed delight at having woken in the night without feeling panicky for the first time in a long time. She attended breakfast and group. Pt. denied thoughts of self harm. She is actively working on follow up plans and support. A- Pt. continues to improve. Appears future oriented. P- Cont. BHTP. Planned discharge for tomorrow.
--- NOTE | 2016-07-17 18:29 | NUR ---
[facility] Day Shift Pt maintained behavioral control throughout the shift. Pt affect continues to appear brighter than noted on previous shifts. Pt spends most of the shift resting in her room and interacting lightly with staff and peers in the dining room. Pt is appropriate with staff and peers when active on the unit, and appears more social than noted on previous shifts. Pt attended community meeting in the AM and group activities throughout the shift. Pt attended all meals and ate approx 75% of all meals.
--- NOTE | 2016-07-17 19:08 | NUR ---
Studio Assistant/Counselor: S: "I'm feeling wonderful today." O: Patient slept 7.5 hours last night as per staff. She denies S/I and H/I. She denies auditory and visual hallucinations. This magazine writer spoke with patient's friend in [place]. Patient's friend will be here to medicinal plant picker patient tomorrow morning at 10:30am. Patient will have out-patient services at [facility], with her initial intake appointment 07/22/16 at 8:00am. A: Patient is cooperative, bright affect, pleasant, hopeful, future oriented. P: Follow care plan, coordinate with out-patient providers.
--- NOTE | 2016-07-17 20:55 | NUR ---
Nursing Neisha shift 3pm to 11pm Pt AAOx3, affect bright, mood euthymic, thoughts organized, linear and logical. Pt anticipating discharge tomorrow and is future oriented. Reports significant improvement in mood, absence of SI and decrease in anxiety. Pt verbalized understanding of need for self-care, medication compliance and utilization of support system to maintain gains in mental health. Addendum: 07/17/16 at 2058 by KAM WESLEY RN Amended: Links added.
[2016-07-17] MEDS: PRAZOSIN PO SCH ×2 (21:49)
[2016-07-18] MEDS: buPROPion XL 150 mg ER24 Tablet PO SCH (08:03)
--- NOTE | 2016-07-18 08:20 | NUR ---
Nursing Discharge- Planned discharge today at 1030. Pt. had slept 6.75 hours last PM per staff report. She was awake and dressed for breakfast. Pt. spoke positively of her future plans. She expressed an understanding of her follow up medications and plans. Pt's prescriptions to be faxed to [facility] as she has requested. She will be given the originals. Pt. denied suicidal thoughts and rated depression as 1/10. All belongings to be returned upon discharge. Pt. appears bright and social with peers at breakfast. Addendum: 07/18/16 at 0952 by CARMELLA GORDON RN Pt. was discharged as planned today at 0935.
[2016-07-18 08:25] VITALS: BP 102/69; PULSE 88; RESP 16
--- NOTE | 2016-07-18 09:23 | PCM.DIMED ---
Discharge Instructions Date of Service Jul 18, 2016 Dates of Hospitalization Jul 08, 2016 at 16:20 Discharge Diagnosis Discharge Diagnosis Major Depression Recurrent nonpsychotic Diet No restrictions Activity No restrictions Hai Prescott DO Jul 18, 2016 09:23
[2016-07-18] MEDS ORDERED: LIT450 PO (09:26)
[2016-07-18] MEDS ORDERED: HYDR50CA3 PO (09:26)
[2016-07-18] MEDS ORDERED: BUPR-97 PO (09:26)
[2016-07-18] MEDS ORDERED: PRAZ2CAP2 PO (09:27)
--- NOTE | 2016-07-18 11:38 | DIS ---
[address] [address] DISCHARGE SUMMARY PATIENT: JAVI ONEILL : 1965 MR#: [id number] ADMIT: 07/08/2016 JOB ID: [id number] DIS: ADMITTING DIAGNOSES: AXIS I 1. Major depressive disorder, recurrent type, nonpsychotic. 2. Panic disorder without agoraphobia. 3. Generalized anxiety disorder. AXIS II Cluster B personality traits. AXIS III None. AXIS IV Moderate. AXIS V Global Assessment of Functioning current 30. DISCHARGE DIAGNOSES: AXIS I 1. Mood disorder, not otherwise specified. 2. Major depressive disorder, recurrent, nonpsychotic. 3. Panic disorder without agoraphobia. 4. Generalized anxiety disorder. AXIS II Borderline and dependent personality features. AXIS III History of urinary tract infection, resolved. AXIS V Global Assessment of Functioning current 50. REASON FOR ADMISSION: Patient was a 50-year-old female admitted with a significant history of depression and suicidal thoughts over the past two weeks. During the course of evaluation, the patient openly identified significant struggles with various trials of SSRIs in the past and further indicated that her sibling brother had been successfully treated with lithium. HOSPITAL COURSE: During hospital course, Dr. Harmon agreed to initiate doses of both Wellbutrin and lithium with significant beneficial improvement of the patient's overall status of functioning. Her lithium level was obtained two days prior to discharge at 1.3 with dose administration of 900 mg q.h.s. In addition, the patient did identify significant contributory improvement with her mood throughout the daytime hours at Wellbutrin 300 mg XL daily but identifying that she was having significant struggles with primary insomnia. Election to decrease dose to 150 mg daily showed significant improvement of the patient's sleep status. Throughout hospital course, the patient also openly identified factors of anxiety and was receiving doses of Vistaril 50 mg t.i.d., and there was significant improvement. She openly identified that she preferred usage of Vistaril over doses of benzodiazepines, which she openly identified that she was worried about potential of addiction. Throughout hospital course, the patient denied any evidence of further suicidal or homicidal ideation. She had various conversations with her children, and and also supportive family members including a long-term friend who was living in [place]. She showed significant willingness to follow up with outpatient care providers through [facility] [place], and elected to discharge with continuation of outpatient services. CONDITION AT TIME OF DISCHARGE ON MENTAL STATUS EXAMINATION: General appearance: She was bright, cooperative, interactive. She maintained good eye contact throughout. She denied any evidence of acute distress. Her speech was of normal tone, frequency, and volume. Her mood was neutral. Affect was congruent. Her thought process showed no evidence of racing thoughts, flight of ideas, loose or disconnected thinking. Thought content, she denied any evidence of current suicidal, homicidal ideation. No evidence of active hallucinations, delusions. Her mental grasp, she was alert, oriented to person, place, time, situation. Attention and concentration intact. 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 Insight and judgment are fair. PLAN: 1. Recommendation is for followup with [facility] next Thursday morning at 8 o'clock for walk-in clinic, first time in both individual therapy and medication management, in [place]. 2. Continuation of Wellbutrin XL 150 mg q.a.m., 1 month supply, no refills. Reason for usage, antidepressant. 3. Continuation of lithium ER 900 mg q.h.s., 1 month supply, no refills. Reason for usage, mood stabilizer. 4. Continuation of Vistaril 50 mg t.i.d., 1 month supply, no refills. Reason for usage, anxiety. 5. Continuation of prazosin 2 mg q.h.s., 1 month supply, no refills. Reason for usage, anxiety.
--- NOTE | 2016-07-18 17:40 | NUR ---
Fountain Attendant/Counselor: S: "I'm feeling great today!" O: Patient slept 6.75+ hours last night as per staff. She denies S/I and H/I. She denies auditory and visual hallucinations. Depression is 0/10 and anxiety is 2/10. Out-patient appointment: [facility], initial intake appointment 07/22/16 at 8:00am. A: Patient is cooperative, bright affect, pleasant, hopeful, future oriented. P: Follow care plan, coordinate with out-patient providers. Addendum: 07/18/16 at 1811 by DEREK ISAAC [facility] Patient stated, "You guys saved my life."
== END 2016-07-18 09:35 | disposition home or self-care (01) | DRG 885 ==
LOC: MHC 16:20
PROVIDERS: ADMIT Psychiatry & Neurology Psychiatry; ATTEND Psychiatry & Neurology Psychiatry
DX: F33.9 Major depressive disorder, recurrent, unspecified (principal); R45.851 Suicidal ideations; F41.0 Panic disorder [episodic paroxysmal anxiety]; F60.3 Borderline personality disorder; F41.1 Generalized anxiety disorder